=== PATIENT | female | born 1985 | race Caucasian/White ===

== ENCOUNTER 2024-03-06 01:30 | Emergency (ER) | payer OTHER, SELFPAY ==
[2024-03-06 01:37] VITALS: BP 171/92
[2024-03-06] MEDS: TORADOL 15 MG IV (02:17)
[2024-03-06] MEDS: NSS 1000 IV (02:18)
[2024-03-06 02:22] LABS: % Basophils 0.5 % (0-2); % Eosinophils 6.6 % (0-6); % Immature Granulocytes 0.4 % (0-0.5); % Lymphocytes 46.7 % (20.5-51.1); % Monocytes 6.8 % (1.7-9.3); Absolute Eosinophils 0.4 10^3/uL (0-0.7); Absolute Lymphocytes 2.6 10^3/uL (1.2-3.4); Absolute Monocytes 0.4 10^3/uL (0.1-0.6); Absolute Neutrophils 2.1 10^3/uL (1.4-6.5); Hematocrit 32.7 % (37.0-47.0); Hemoglobin 11.2 g/dL (12.0-16.0); Mean Corp Hgb Conc. 34.3 g/dL (33.0-37.0); Mean Corpuscular Hgb 29.9 pg (27.0-31.0); Mean Corpuscular Volume 87.2 fL (81.0-99.0); Mean Platelet Volume 9.3 fL (7.4-10.4); Nucleated Red Blood Cells % 0 %; Platelet Count 302 10^3/uL (130-400); Red Blood Cell Count 3.75 10^6/uL (4.20-5.40); Red Cell Dist. Width 12.4 % (11.5-14.5); White Blood Cell Count 5.5 10^3/uL (4.8-10.8)
[2024-03-06 02:27] LABS: Urine Albumin Negative (Neg - Trace); Urine Bilirubin Negative (Negative); Urine Character Clear (Clear); Urine Color Straw; Urine Glucose Negative (Negative); Urine Ketone Negative (Negative); Urine Leukocyte Negative (Negative); Urine Nitrite Negative (Negative); Urine Occult Blood Negative (Negative); Urine Urobilinogen Negative (Neg - 1+); Urine pH 6.5 (5.0-9.0)
[2024-03-06 02:31] LABS: HCG, Serum Qualitative Screen Negative
--- NOTE | 2024-03-06 02:34 | ED.GENMED ---
History of Present Illness
General
Chief Complaint: Abdominal Pain
Source: patient
Time Seen by Provider: 03/06/24 01:56
Nursing documentation reviewed up to this point in time: agreed with
History of Present Illness
History of Present Illness:
This a pleasant 38-year-old female who presents with right flank pain. She states that last week she had generalized abdominal pain but the pain eventually radiated to the right flank. Patient thinks she had a kidney stone in the past but is
unsure if this feels similar. She did take a GLP-1 prescribed by weight watchers but stopped taking it last week. Denies fever or chills. Reports no nausea or vomiting. Denies any difficulty urinating. Reports no diarrhea.
Past History
Past History
ED Past Medical History: Other (pih); Negative Asthma, HTN, Hypercholesterolemia or NIDDM
ED Past Surgical History:
Social History
Tobacco: Non-smoker
Alcohol: Occasional
Personal:
Living: with family
Employment: Employed
Family History
Family History: Other (migrane headache.)
Review of Systems
Review of Systems
Allergies reviewed?: Yes
All Other Systems: ROS reviewed and negative except as documented in HPI and ROS
Constitutional: Reports no symptoms
EENT: Reports no symptoms
Respiratory: Reports no symptoms
Cardiac: Reports no symptoms
ABD/GI: Reports abdominal pain; Denies nausea, vomiting, diarrhea or constipated
: Reports flank pain
Musculoskeletal: Reports no symptoms
Skin: Reports no symptoms
Neurological: Reports no symptoms
Endocrine: Reports no symptoms
Hematologic/Lymphatic: Reports no symptoms
Psychiatric: Reports no symptoms
Phy Exam
General Physical Exam
General Presentation: well appearing and mild distress
General Skin: warm
General Habitus: normal
General Mental: alert
General Hydration: appears well hydrated
ENT Exam
ENT Exam: EOMI, pharynx normal, neck supple and normocephalic
Eye Exam
Eye Exam: PERRL, cornea clear and conjunctiva normal
Cardiovascular Exam
Cardiovascular Exam: regular rate/rhythm, no edema, no murmur and normal peripheral pulses
Pulmonary Exam
Pulmonary Exam: lungs clear, no respiratory distress, no rales, no crackles, no rhonchi, no stridor, no wheezing and no cough
Gastrointestinal Exam
Gastrointestinal Exam: cva tenderness (Right-sided)
Neurological Exam
Neurological Exam: alert, oriented x3, no motor deficits and speech normal
Musculoskeletal Exam
Musculoskeletal Exam: full ROM and no edema
Skin Exam
Skin Exam: normal color, warm/dry, no rash and no petechia
Psychiatric Exam
Psychiatric Exam: normal mood/affect
Course
Orders/Labs/Results
Orders:
Orders
03/06/24 02:03
CT Abd/pel Without Iv Or Oral Urgent
Comment:
Reason For Exam: left flank pain
Test Result ONCE
03/06/24 02:10
Complete Blood Count/With Diff Urgent
Comprehensive Metabolic Panel Urgent
HCG, Serum Qualitative Screen Urgent
Lipase Urgent
03/06/24 02:13
Ketorolac [Toradol] 15 mg .ROUTE .STK-MED ONE
Ketorolac [Toradol] 15 mg IV NOW STA
Ondansetron Injectable [Zofran] 4 mg .ROUTE .STK-MED ONE
03/06/24 02:18
0.9% Sodium Chloride 1000 ml [Nss] 1,000 ml IV BOLUS
03/06/24 02:19
Urinalysis Reflex To Culture Urgent
Date Specimen was Collected: 03/06/24
Time Specimen was Collected: 02:09
03/06/24 04:06
US Pelvis W Transvag Combined Urgent
Reason For Exam: right pelvic pain
Abnormal Lab Results
03/06/24
02:10
RBC 3.75 L 10^6/uL
(4.20-5.40)
Hgb 11.2 L g/dL
(12.0-16.0)
Hct 32.7 L %
(37.0-47.0)
Neutrophils % 39.0 L %
(42.2-75.2)
Eosinophils % 6.6 H %
(0-6)
03/06/24 02:10
03/06/24 02:10
Vital Signs
Initial and Last Documented VS:
Initial Vital Signs
Temp Pulse Resp BP Pulse Ox
98.5 F 88 18 171/92 99
03/06/24 01:37 03/06/24 01:37 03/06/24 01:37 03/06/24 01:37 03/06/24 01:37
Last Documented Vital Signs
Temp Pulse Resp BP Pulse Ox
98.5 F 76 17 171/92 100
03/06/24 01:37 03/06/24 04:41 03/06/24 04:41 03/06/24 01:37 03/06/24 04:41
*Critical Care Note
Total Time (30-74mins, 75-104mins- exclusive of procedures): Not Applicable
Update Note
Update Note:
CT A/P W/IV CONTRAST
IMPRESSION:
Comparison with 03/02/21.
No definite CT findings to account for the reported pain/symptoms.
Prominent right ovary within normal limits for size. This is likely a normal ovary for this patient given the size and appearance on prior. However, if there is pelvic pain, targeted ultrasound could be considered.
No appendicitis or colitis.
No evidence of small bowel obstruction.
No free fluid or free air.
Unremarkable CT appearance of the gallbladder, biliary tract, and pancreas.
No evidence of hydroureteronephrosis or obstructing stone.
No AAA.
Case finalized at 325am ET
Patient states that the pain is in a similar location to menstrual cramping. She states it is a little higher but this similar location. We will get an ultrasound after CT results
US pelvis
Comparison: Same date CT abdomen/pelvis
IMPRESSION:
�Anteverted but mildly retroflexed uterus. No myometrial mass. Lower uterine segment section scar. Unremarkable endometrium, with bilayer measuring 8 mm.
�Right ovary measures up to 5.3 cm. Intraovarian cyst with low-level internal echoes measures up to 3.4 cm; this is likely a hemorrhagic cyst or endometrioma. In the nonedematous surrounding stroma, normal arterial and venous flow on spectral
Doppler. No paraovarian mass.
�Left ovary measures up to 3.0 cm. Multiple small physiologic follicles by nonedematous stroma. Normal arterial and venous flow on spectral Doppler. No paraovarian mass.
�No significant free fluid in the pelvic cul-de-sac.
ED Attending Note
-
Portions of this chart may have been created with voice recognition software.� Occasional wrong word or��sound alike� substitutions may have occurred due to the inherent limitations of voice recognition software.
Discharge Plan
Departure
Patient Disposition: Home (Routine Discharge)
Date of Disposition: 03/06/24
Time of Disposition: 05:41
Patient with high blood pressure during this ER visit?: Yes
Condition: Good
Discharge Problem:
Ovarian cyst
Instructions: Ovarian Cyst (DC), Abdominal Pain, BLOOD PRESSURE
Prescriptions:
New
diclofenac sodium 75 mg tablet,delayed release (DR/EC)
75 mg PO BID Qty: 10 0RF
No Action
omeprazole 40 MG capsule,delayed release(DR/EC)
40 mg PO DAILY
diclofenac sodium 25 MG tablet,delayed release (DR/EC)
50 mg PO BID PRN (Reason: pain) Qty: 30 0RF
Referrals:
[facility] [Provider Group]
UNKNOWN - PT DOES,NOT KNOW [Family Provider] -
Activity Restrictions/Additional Instructions:
It was a pleasure meeting you and taking part in your care. We hope for your continued healing and wellness.
Please read discharge instructions in their entirety. However, they are for general education and may not describe your exact diagnosis at discharge. Information on your ER visit and medical conditions were discussed with you along with appropriate
follow up information...
If indicated, please take your medications as instructed and indicated on discharge paperwork.
Please schedule a follow up appointment as directed. Call to schedule an appointment
Please return to the emergency department with ANY change in, persisting, or worsening of symptoms. If any of your symptoms do not improve, or persist, or become more severe within 6-12 hours, please return to the emergency department for further
care.
Please return to the emergency department if you develop a headache, neck pain/stiffness, fever greater than 100.4F, chest pain, shortness of breath, persistent nausea, vomiting, slurred speech, difficulty walking, numbness/tingling, weakness, signs
of infection or any other symptoms that are worrisome to you.
If you have any questions or concerns please do not hesitate to call the Hospital at or E-mail me directly at [email or web address]
Interventions
Interventions:
*Risk Screen - Suicide Last Done: 03/06/24 01:37
*General Assessment Last Done: 03/06/24 01:37
*Neglect/Abuse Screening Last Done: 03/06/24 01:37
*ED COVID-19 Vaccine History Last Done: 03/06/24 01:37
VK-[id number]-Robcxdyifx Assessment Last Done: 03/06/24 04:25
Discharge Date and Time
Print Language: CENTRAL AFRICAN
[2024-03-06 02:35] LABS: ALT (SGPT) 17 U/L (0-35); AST (SGOT) 20 U/L (14-36); Albumin 4.2 g/dl (3.5-5.0); Alkaline Phosphatase 90 U/L (38-126); Blood Urea Nitrogen 11 mg/dl (7-17); Calcium 9.3 mg/dl (8.4-10.2); Carbon Dioxide 26 mmol/L (22-30); Chloride 103 mmol/L (98-107); Glucose 94 mg/dl (70-99); Lipase 74 U/L (23-300); Potassium 4.1 mmol/L (3.5-5.1); Sodium 139 mmol/L (135-145); Total Bilirubin 0.4 mg/dl (0.2-1.3); Total Protein 6.6 g/dl (6.3-8.2); eGFR > 60.00
== END 2024-03-06 06:03 | disposition home or self-care (01) ==
LOC: EMR 01:30
PROVIDERS: EMERGENCY PHYSICIAN Student in an Organized Health Care Education/Training Program
DX: N83.202 Unspecified ovarian cyst, left side (principal); N83.201 Unspecified ovarian cyst, right side; R03.0 Elevated blood-pressure reading, without diagnosis of hypertension
CPT/HCPCS: 99285; 96374; 96361; 74176; 76830; 76856; 80053; 81003; 83690; 84703; 85025

== ENCOUNTER 2024-05-18 16:37 | Emergency (ER) | payer OTHER, SELFPAY ==
[2024-05-18] MEDS: MORPHINE SULFATE 4 MG IV (17:24)
[2024-05-18] MEDS: ZOFRAN 4 MG IV (17:24)
[2024-05-18] MEDS: NSS 1000 IV (17:35)
[2024-05-18 17:36] LABS: Urine Albumin Negative (Neg - Trace); Urine Bilirubin Negative (Negative); Urine Character Clear (Clear); Urine Color Yellow; Urine Glucose Negative (Negative); Urine Ketone Negative (Negative); Urine Leukocyte Negative (Negative); Urine Nitrite Negative (Negative); Urine Occult Blood 2+ (Negative); Urine Urobilinogen Negative (Neg - 1+); Urine pH 6.5 (5.0-9.0)
[2024-05-18 17:39] LABS: % Basophils 0.6 % (0-2); % Eosinophils 6.4 % (0-6); % Immature Granulocytes 0.3 % (0-0.5); % Lymphocytes 24.6 % (20.5-51.1); % Monocytes 4.4 % (1.7-9.3); % Neutrophils 63.7 % (42.2-75.2); Absolute Basophils 0.1 10^3/uL (0-0.2); Absolute Eosinophils 0.5 10^3/uL (0-0.7); Absolute Lymphocytes 1.9 10^3/uL (1.2-3.4); Absolute Monocytes 0.3 10^3/uL (0.1-0.6); Absolute Neutrophils 4.9 10^3/uL (1.4-6.5); Hematocrit 34.7 % (37.0-47.0); Hemoglobin 11.9 g/dL (12.0-16.0); Mean Corp Hgb Conc. 34.3 g/dL (33.0-37.0); Mean Corpuscular Hgb 30.3 pg (27.0-31.0); Mean Corpuscular Volume 88.3 fL (81.0-99.0); Mean Platelet Volume 9.8 fL (7.4-10.4); Nucleated Red Blood Cells % 0 %; Platelet Count 300 10^3/uL (130-400); Red Blood Cell Count 3.93 10^6/uL (4.20-5.40); Red Cell Dist. Width 12.9 % (11.5-14.5); White Blood Cell Count 7.7 10^3/uL (4.8-10.8)
[2024-05-18 17:49] LABS: Urine Bacteria Few (Negative); Urine Red Blood Cell 0-2 /HPF (0-2); Urine White Cell 0-2 /HPF (0-5)
[2024-05-18 17:57] LABS: HCG, Serum Qualitative Screen Negative
[2024-05-18 17:59] LABS: ALT (SGPT) 18 U/L (0-35); AST (SGOT) 23 U/L (14-36); Albumin 4.8 g/dl (3.5-5.0); Alkaline Phosphatase 99 U/L (38-126); Blood Urea Nitrogen 12 mg/dl (7-17); Calcium 10.1 mg/dl (8.4-10.2); Carbon Dioxide 25 mmol/L (22-30); Chloride 106 mmol/L (98-107); Glucose 99 mg/dl (70-99); Potassium 4.5 mmol/L (3.5-5.1); Sodium 138 mmol/L (135-145); Total Bilirubin 0.8 mg/dl (0.2-1.3); Total Protein 7.1 g/dl (6.3-8.2); eGFR > 60.00
--- NOTE | 2024-05-18 19:28 | ED.GENMED ---
History of Present Illness
General
Chief Complaint: Female Tobacco Hanger/Gu symptoms
Source: patient
Exam Limitations: none
Time Seen by Provider: 05/18/24 16:55
Nursing documentation reviewed up to this point in time: agreed with
History of Present Illness
History of Present Illness:
Patient to ED with complaint of worsening pelvic pain. SHe states she has a right ovarian cyst and suspected endometriosis. SHe has an uS scheduled for next week but did not feel that she could wait. Brought to ED by family for eval. Denies
fever/chills,n/v/d. LMP today, normal flow.
Past History
Past History
ED Past Medical History: Other (pih); Negative Asthma, HTN, Hypercholesterolemia or NIDDM
ED Past Surgical History:
Social History
Tobacco: Non-smoker
Alcohol: Occasional
Personal:
Living: with family
Employment: Employed
Family History
Family History: Other (migrane headache.)
Review of Systems
Review of Systems
Allergies reviewed?: Yes
All Other Systems: ROS reviewed and negative except as documented in HPI and ROS
Constitutional: Reports no symptoms
EENT: Reports no symptoms
Respiratory: Reports no symptoms
Cardiac: Reports no symptoms
ABD/GI: Reports other (Pelvic pain)
: Reports no symptoms
Musculoskeletal: Reports no symptoms
Skin: Reports no symptoms
Neurological: Reports no symptoms
Psychiatric: Reports no symptoms
Phy Exam
General Physical Exam
General Presentation: well appearing and mild distress
General age: appears stated age
General Skin: warm and dry
General Habitus: normal
Pulmonary Exam
Pulmonary Exam: lungs clear and no respiratory distress
Gastrointestinal Exam
Gastrointestinal Exam: normal bowel sounds, soft, no organomegaly, no pulsatile mass, non distended and other (Bilateral lower pelvic pain mag palpation)
Musculoskeletal Exam
Musculoskeletal Exam: full ROM and neuro vasc intact
Skin Exam
Skin Exam: normal color, warm/dry and no rash
Psychiatric Exam
Psychiatric Exam: normal mood/affect
Course
Orders/Labs/Results
Orders:
Orders
05/18/24 17:09
Test Result ONCE
05/18/24 17:10
Pelvis (Non Obstetric) US [US Pelvis Only (non-obstetric)] Urgent
Comment:
Reason For Exam: pain
05/18/24 17:11
Morphine Sulfate 4 mg IV NOW STA
Ondansetron Injectable [Zofran] 4 mg IV NOW STA
05/18/24 17:26
Complete Blood Count/With Diff Urgent
Comprehensive Metabolic Panel Urgent
HCG, Serum Qualitative Screen Urgent
05/18/24 17:28
Urinalysis Reflex To Culture Urgent
Date Specimen was Collected: 05/18/24
Time Specimen was Collected: 17:27
Urine Microscopic Reflex Cult Urgent
05/18/24 17:35
0.9% Sodium Chloride 1000 ml [Nss] 1,000 ml IV BOLUS
Abnormal Lab Results
05/18/24 05/18/24
17:26 17:28
RBC 3.93 L 10^6/uL
(4.20-5.40)
Hgb 11.9 L g/dL
(12.0-16.0)
Hct 34.7 L %
(37.0-47.0)
Eosinophils % 6.4 H %
(0-6)
Ur Occult Blood Reflex 2+ A
(Negative)
Urine Bacteria (Reflex) Few A
(Negative)
05/18/24 17:26
05/18/24 17:26
Vital Signs
Initial and Last Documented VS:
Initial Vital Signs
Temp Pulse Resp BP Pulse Ox
98.1 F 108 20 189/89 99
05/18/24 16:39 05/18/24 16:39 05/18/24 16:39 05/18/24 16:39 05/18/24 16:39
Last Documented Vital Signs
Temp Pulse Resp BP Pulse Ox
98.1 F 78 20 154/88 100
05/18/24 16:39 05/18/24 19:22 05/18/24 16:39 05/18/24 18:00 05/18/24 19:22
*Radiology
Radiology exam reviewed: radiology read reviewed
*Pulse Oximetry
Patient hypoxic: no
*Critical Care Note
Total Time (30-74mins, 75-104mins- exclusive of procedures): Not Applicable
Update Note
Update Note:
Labs, US reviewed with patient. Right ovarian cyst smaller than noted in prior study. SHe will be discharged home and will follow up withgyn and enometrial specialist as planned.
ED Attending Note
-
Portions of this chart may have been created with voice recognition software.� Occasional wrong word or��sound alike� substitutions may have occurred due to the inherent limitations of voice recognition software.
Discharge Plan
Departure
Patient Disposition: Home (Routine Discharge)
Date of Disposition: 05/18/24
Time of Disposition: 19:24
Patient with high blood pressure during this ER visit?: No
Condition: Good
Covid-19: Not Applicable
Discharge Problem:
Pelvic pain
Instructions: Ovarian cyst - ED discharge instructions
Prescriptions:
New
tramadol 50 mg tablet
50 mg PO Q6H PRN (Reason: Pain) Qty: 12 0RF
No Action
omeprazole 40 MG capsule,delayed release(DR/EC)
40 mg PO DAILY
diclofenac sodium 25 MG tablet,delayed release (DR/EC)
50 mg PO BID PRN (Reason: pain) Qty: 30 0RF
diclofenac sodium 75 mg tablet,delayed release (DR/EC)
75 mg PO BID Qty: 10 0RF
Referrals:
Stranges,Lupe, DIRECTOR GRAPHICS [Family Provider] -
Activity Restrictions/Additional Instructions:
Follow up with your oyster opener and keep your scheduled appointment with the endometrial specialist. Return to the emergency department immediately for any changes in/worsening of your symptoms.
Interventions
Interventions:
*Risk Screen - Suicide Last Done: 05/18/24 17:33
*General Assessment Last Done: 05/18/24 16:39
*Neglect/Abuse Screening Last Done: 05/18/24 17:33
*ED COVID-19 Vaccine History Last Done: 05/18/24 17:33
ED-Female Genitourinary Assessment Last Done: 05/18/24 17:45
Discharge Date and Time
Print Language: SINHALA
== END 2024-05-18 19:52 | disposition home or self-care (01) ==
LOC: EMR 16:37
PROVIDERS: Nurse Practitioner; EMERGENCY PHYSICIAN Emergency Medicine; FAMILY PHYSICIAN Nurse Practitioner Family
DX: R10.2 Pelvic and perineal pain (principal); N83.201 Unspecified ovarian cyst, right side; Z90.721 Acquired absence of ovaries, unilateral
CPT/HCPCS: 99284; 96374; 96375; 76856; 80053; 81003; 81015; 84703; 85025

== ENCOUNTER → 2024-10-27 07:59 | Outpatient (REF) | payer OTHER, SELFPAY | LOC: HWRAD 07:59 | PROVIDERS: ATTENDING PHYSICIAN Obstetrics & Gynecology; FAMILY PHYSICIAN Physician Assistant Medical | DX: N83.201 Unspecified ovarian cyst, right side (principal); R10.2 Pelvic and perineal pain | CPT/HCPCS: 76830; 76856 ==

== ENCOUNTER 2024-11-08 06:17 | Day surgery (SDC) | payer OTHER, SELFPAY ==
[2024-11-04 09:54] LABS: Hematocrit 37.5 % (37.0-47.0); Hemoglobin 12.7 g/dL (12.0-16.0); Mean Corp Hgb Conc. 33.9 g/dL (33.0-37.0); Mean Corpuscular Volume 91.2 fL (81.0-99.0); Nucleated Red Blood Cells % 0 %; Platelet Count 319 10^3/uL (130-400); Red Cell Dist. Width 13.6 % (11.5-14.5)
[2024-11-04 12:03] LABS: Blood Urea Nitrogen 13 mg/dl (7-17); Calcium 10.1 mg/dl (8.4-10.2); Carbon Dioxide 25 mmol/L (22-30); Chloride 107 mmol/L (98-107); Glucose 92 mg/dl (70-99); Potassium 4.9 mmol/L (3.5-5.1); Sodium 138 mmol/L (135-145); eGFR > 60.00
[2024-11-04 12:05] LABS: Beta HCG Quantitative < 2.39 mIU/ml
[2024-11-08] VITALS (10 sets, daily range): BP systolic 95–164; BP diastolic 63–91; BMI 24.3
[2024-11-08] MEDS: EMEND 40 MG PO (11:49)
[2024-11-08] MEDS: TYLENOL 1000 MG PO (11:50)
[2024-11-08] MEDS: NEURONTIN 300 MG PO (11:50)
[2024-11-08] MEDS: NORMOSOL-R/PLASMALYTE-A 1000 IV (11:55)
--- NOTE | 2024-11-08 16:26 | W.IMMPOSTOP ---
Surgical Immed Post Op Note
-
Primary Surgeon: Karlie Browne DO
Casino Accountant:DOROTA Alva
Pre-op Diagnosis: Menorrhagia, dysmenorrhea, complex right adnexal cystic mass
Post-op Diagnosis: Menorrhagia, dysmenorrhea, complex right adnexal mass, endometriosis, pelvic adhesions
Procedure Performed: Hysteroscopy D&C; robotic diagnostic laparoscopy, lysis of adhesions
Anesthesia Type: general ET DR. Tello
Specimen / Cultures: 1. endocervical curettings 2. endometrial curettings
Estimated Blood Loss: 2ml
Complications: none
Operative Findings: Hysteroscopic findings: normal appearing endometrial cavity, bilateral tubal ostia seen.
Laparoscopic findings: Uterus globular shape with adhesions involving sigmoid colon, obliterated cul de sac. Right adnexa with
adhesions involving bowel and posterior uterus. Dilated right fallopian tube. Endometriosis implant superficially on sigmoid colon, pelvic peritoneal
endometriosis implants. Neither ovary able to be visualized due to adhesions behind uterus involving bowel.
Decision made to abort planned right ovarian cystectomy so further patient counseling can be performed as well as bowel prep and having colorectal surgeon available.
Dr. Newsome performed umbilical hernia repair and closure.
Counts correct times 2.
Stable to recovery.
[2024-11-08] MEDS: DILAUDID 0.5 MG IV (17:19)
--- NOTE | 2024-11-09 09:40 | W.IMMPOSTOP ---
Surgical Immed Post Op Note
-
Primary Surgeon: Mercedez
Assisting Surgeon: DOROTA Perdue
Pre-op Diagnosis: Umbilical hernia
Post-op Diagnosis: Umbilical hernia
Procedure Performed: Open primary umbilical hernia repair
Anesthesia Type: General
Specimen / Cultures: None
Estimated Blood Loss: 3 cc
Complications: None
Operative Findings:
1. Fascial defect < 1 cm, pre-peritoneal fat
2. Primary closure with 0 PDS x 3
== END 2024-11-08 18:22 | disposition home or self-care (01) ==
LOC: SDS 06:17
PROVIDERS: ATTENDING PHYSICIAN Obstetrics & Gynecology
DX: N92.0 Excessive and frequent menstruation with regular cycle (principal); N94.6 Dysmenorrhea, unspecified; N80.9 Endometriosis, unspecified; N83.291 Other ovarian cyst, right side; N73.6 Female pelvic peritoneal adhesions (postinfective)
CPT/HCPCS: 58558; 36415; 80048; 84702; 85025; 86850; 86900; 86901; 88305

== ENCOUNTER → 2024-12-02 08:13 | Outpatient (REF) | payer OTHER, SELFPAY | LOC: HWWDC 08:13 | PROVIDERS: ATTENDING PHYSICIAN Obstetrics & Gynecology; FAMILY PHYSICIAN Physician Assistant Medical | DX: Z12.31 Encounter for screening mammogram for malignant neoplasm of breast (principal) | CPT/HCPCS: 77063; 77067 ==

== ENCOUNTER 2024-12-13 05:52 | Inpatient (IN) | payer OTHER, SELFPAY ==
[2024-12-13] VITALS (16 sets, daily range): BP systolic 113–158; BP diastolic 57–94; BMI 24.7
[2024-12-13] MEDS: NEURONTIN 300 MG PO (06:33)
[2024-12-13] MEDS: TYLENOL 1000 MG PO ×3 (06:34→23:14)
[2024-12-13] MEDS: NORMOSOL-R/PLASMALYTE-A 1000 IV ×3 (06:42→21:41)
[2024-12-13] MEDS: VIBRAMYCIN 270 MG IV (06:43)
--- NOTE | 2024-12-13 11:00 | W.IMMPOSTOP ---
Documented by User: LAURA Seay 12/13/24 11:20
Surgical Immed Post Op Note
-
Primary Surgeon: Nam Reyes MD
Assisting Surgeon: Karlie Browne DO
Assistants: SARABJIT Turcios
Pre-op Diagnosis: Endometriosis of Sigmoid Colon
Post-op Diagnosis: Same
Procedure Performed: Robotic lysis of adhesions, intraoperative flexible sigmoidoscopy
Anesthesia Type: GET
Specimen / Cultures:
Estimated Blood Loss: 25cc
Complications: None
Operative Findings: Multiple adhesions in lower pelvis, extensive adhesions of rectum and sigmoid colon, normal flexible sigmoidoscopy.

Documented by User: Henry Reyes MD 12/13/24 11:21
Surgical Immed Post Op Note
-
Primary Surgeon: Nam Reyes MD
Assisting Surgeon: Karlie Browne DO
Assistants: SARABJIT Huffman, TATE WoodardS
Pre-op Diagnosis: Severe endometriosis
Post-op Diagnosis: Same
Procedure Performed: Cystoscopy with bilateral ureteral stents/ICG by Dr. Schmidt
Robotic extensive lysis of adhesions (>2hours), intraoperative flexible sigmoidoscopy
Robotic total hysterectomy by Dr. Browne
Anesthesia Type: GET
Specimen / Cultures: None by me
Estimated Blood Loss: 25cc from my portion
Complications: None
Operative Findings: Multiple adhesions in lower pelvis from severe endometriosis, extensive adhesions between the uterus/ovaries and rectosigmoid, normal flexible sigmoidoscopy.
--- NOTE | 2024-12-13 11:25 | W.IMMPOSTOP ---
Surgical Immed Post Op Note
-
Primary Surgeon: Karlie Browne DO
Eyelet Row Marker: DOROTA Alva
Pre-op Diagnosis: Severe endometriosis, right ovarian endometrioma, Dense pelvic adhesions, chronic pelvic pain, dysmenorrhea, adhesions of colon
Post-op Diagnosis: same
Procedure Performed: Robotic Total laparoscopic hysterectomy, bilateral salpingo-oopherectomy, extensive lysis of adhesions; cystoscopy and bilateral ureteral stent placement by Dr. Schmidt (Urology)
Anesthesia Type: general ET Dr. Barakat
Specimen / Cultures: uterus, cervix, bilateral fallopian tubes
Estimated Blood Loss: 10ml (total case 35ml)
Complications: none
Operative Findings: Globular shaped uterus with some adhesions in JEFFRY. Bilateral hydrosalpinx. Obliterated culde sac. Severe endometriosis stage 4.
Right ovarian endometrioma. Left ovarian endometriosis. Both ovaries with severe adhesions. Sigmoid colon adhesions to posterior uterus, cervix, bilateral adnexa.
Left ureteral stent removed at end of case.
Morel 530mL.
Counts correct times 2.
Stable to recovery.
[2024-12-13] MEDS: DILAUDID 0.25 MG IV (11:56)
[2024-12-13] MEDS: ZOFRAN 4 MG IV (12:06)
[2024-12-13] MEDS: DILAUDID 0.5 MG IV (12:19)
[2024-12-13] MEDS: DETROL LA 4 MG PO (13:10)
--- NOTE | 2024-12-13 13:45 | PTCARENOTE ---
Patient admitted from pacu post robotic total hysterectomy and lysis of adhesions.The patient is alert and oriented.She rates her pain at a 4 out of 10.All incisions are clean without drainage.The patient does complain of discomfort and pressure
from the cartagena catheter.The patient is in her bed with the call smith in reach.
[2024-12-13] MEDS: VALIUM INJECTION 5 MG IV (14:05)
[2024-12-13] MEDS: MORPHINE SULFATE 2 MG IV (16:03)
[2024-12-13] MEDS: MYLICON 80 MG PO ×2 (17:13→23:13)
[2024-12-13] MEDS: LOVENOX 40 MG SC (17:14)
[2024-12-13] MEDS: ROXICODONE 5 MG PO ×2 (19:26→23:31)
[2024-12-13] MEDS: COLACE 100 MG PO (19:26)
[2024-12-14 03:30] VITALS: BP 136/78
[2024-12-14] MEDS: ROXICODONE 5 MG PO ×2 (03:52→08:24)
[2024-12-14] MEDS: TYLENOL 1000 MG PO ×2 (05:47→13:00)
[2024-12-14] MEDS: MYLICON 80 MG PO ×2 (05:47→13:00)
[2024-12-14 06:33] LABS: Hematocrit 31.8 % (37.0-47.0); Hemoglobin 10.4 g/dL (12.0-16.0); Mean Corp Hgb Conc. 32.7 g/dL (33.0-37.0); Mean Corpuscular Volume 94.1 fL (81.0-99.0); Nucleated Red Blood Cells % 0 %; Platelet Count 344 10^3/uL (130-400); Red Cell Dist. Width 12.5 % (11.5-14.5)
[2024-12-14 07:05] LABS: Blood Urea Nitrogen 5 mg/dl (7-17); Carbon Dioxide 26 mmol/L (22-30); Chloride 106 mmol/L (98-107); Estimated Creatinine Clearance 107 ml/min; Potassium 4.1 mmol/L (3.5-5.1); Sodium 138 mmol/L (135-145)
--- NOTE | 2024-12-14 07:30 | W.PN.OBG.DWH ---
Today's Communication / Plan
-
must urinate prior to discharge
dc today
Assessment/Plan
-
POD#1 s/p RA TLH BSO for stage 4 endometriosis with dense pelvic adhesions and adhesions to bowel.
Hemodynamically stable.
Cartagena and stent removed.
-Must void before dc
Diet as ailyn
Will start on estradiol 2mg PO for estrogen replacement.
RTO 2 wks
Reviewed instructions
Subjective Data
-
POD#1 Feeling well, no concerns.
Happy to get cartagena out.
+ belching, feels gas moving.
Ailyn diet
Adequate pain control.
Objective Data
-
Laboratory Results
12/14/24 05:40
12/14/24 05:40
Vital Signs
Temp Pulse Resp BP Pulse Ox
99.1 F 92 16 136/78 100
12/14/24 03:30 12/14/24 03:30 12/14/24 03:30 12/14/24 03:30 12/14/24 03:30
VSS afeb
Cor regular rate
Pulm: clear
abd: soft +bs nondistended, incisions cdi
no vaginal bleeding
ext: no calf pain
[2024-12-14 07:35] VITALS: BP 145/83
--- NOTE | 2024-12-14 07:39 | W.DS.TRANS ---
DC Summary - Analytic Programmer
-
Discharge Instructions:
Sleep Apnea Risk Intermediate
Discharge Diagnosis/Procedures Endometriosis, chronic pelvic pain, adhesions
Diet Regular
Activity No strenuous activity
Driving Restrictions No driving for 1 week
Bathing Restrictions OK to Shower
Instructions:
Stand-Alone Forms:
Changes to Home Medications: No
Discharge Medications:
DC Medications w/original date entered in [facility]
alprazolam 0.5 mg tablet 0.5 mg PO BID PRN anxiety 11/03/24
sumatriptan succinate 25 mg tablet (Imitrex) 25 mg PO PRN PRN MIGRAINE 11/03/24
acetaminophen 500 mg tablet (Tylenol Extra Strength) 1,000 mg (2 x 500 mg) PO Q6HPRN PRN mild pain #0 tabs 12/14/24
ibuprofen 600 mg tablet 600 mg PO Q6H PRN cramps #1 tab 12/14/24
omeprazole 20 mg tablet,delayed release 20 mg PO DAILY reflux symptoms #0 tabs 12/14/24
oxycodone 5 mg tablet 2.5 mg (1/2 x 5 mg) PO Q4HPRN PRN moderate pain #0 tabs 12/14/24
oxycodone 5 mg tablet 5 mg PO Q4HPRN PRN severe pain #12 tabs 12/14/24
Home Medication Changes
Pending Results: Yes
Additional Pending Results:
surgical pathology
Total time spent discharging patient (in min): 30
[2024-12-14] MEDS: COLACE 100 MG PO (08:22)
[2024-12-14] MEDS: NORMOSOL-R/PLASMALYTE-A IV ×2 (08:22→13:01)
[2024-12-14] MEDS: PROTONIX 40 MG PO (08:22)
--- NOTE | 2024-12-14 09:15 | CM ---
Patient seen at bedside in [address] [place] [address]. Patient states that she lives with spouse and children. Patient has a ride home with . Patient states she lives in a one story home with no DME. Patient stated that her PCP is Dr. Mathur and she uses the
[facility] in [place]. Patient is for discharge home today. Patient indicated that she did not anticipate any discharge planning needs.
Plan; home with no needs
--- NOTE | 2024-12-14 09:40 | W.PN.CRS1 ---
Today's Communication / Plan
-
Continue regular diet
Out of bed
Discharge
Assessment/Plan
-
POD#1 Robotic lysis of adhesions, intraoperative flexible sigmoidoscopy
vitals normal
WBC: 8.1. RBC 10.4 (12.7)
- Regular diet
- Out of bed as tolerated
- OR pathology is pending
- Follow-up as needed
- For discharge later today
Subjective Data
Subjective Data
Date of Service: December 14, 2024
Patient states she feels well. Her only complaint is that she has some gas pain overnight. She has been walking the halls. She has passed flatus. Denies nausea or vomiting. She did some breakfast this morning.
Objective Data
-
Vital Signs
Temp Pulse Resp BP Pulse Ox
98.7 F 92 16 145/83 100
12/14/24 07:35 12/14/24 07:35 12/14/24 07:35 12/14/24 07:35 12/14/24 07:35
Intake & Output
12/13/24 12/14/24 12/15/24
06:59 06:59 06:59
Intake Total 5042 / 5042
Output Total 5430 / 5430
Balance -388 / -388
Intake:
Oral fluids 3267 / 3267
IV fluids (Total) 1775 / 1775
Normosol 400 / 400
Output:
Urine, Morel 5430 / 5430
Lab Results
12/14/24 05:40
12/14/24 05:40
Physical Exam
-
General: No Acute Distress and AOx3
Abdomen: Soft, Non Distended and Non Tender
Skin: Warm and Dry
Incision: Clear, Dry, Intact
[2024-12-14] MEDS: XANAX 0.5 MG PO (09:44)
[2024-12-14 11:05] VITALS: BP 158/88
[2024-12-14] MEDS: MOTRIN 600 MG PO (14:19)
[2024-12-14 15:15] VITALS: BP 142/81
== END 2024-12-14 15:43 | disposition home or self-care (01) | DRG 743 ==
LOC: 2 SOUTH 05:52
PROVIDERS: ADMITTING PHYSICIAN Surgery; FAMILY PHYSICIAN Nurse Practitioner Adult Health; REFERRING PHYSICIAN Obstetrics & Gynecology
PROC: 0UN24ZZ Release Bilateral Ovaries, Percutaneous Endoscopic Approach (ICD-10-PCS; 2024-12-13)
PROC: 0UT24ZZ Resection of Bilateral Ovaries, Percutaneous Endoscopic Approach (ICD-10-PCS; 2024-12-13)
PROC: 0UN94ZZ Release Uterus, Percutaneous Endoscopic Approach (ICD-10-PCS; 2024-12-13)
PROC: 0UT7FZZ Resection of Bilateral Fallopian Tubes, Via Natural or Artificial Opening With Percutaneous Endoscopic Assistance (ICD-10-PCS; 2024-12-13)
PROC: 0DNN4ZZ Release Sigmoid Colon, Percutaneous Endoscopic Approach (ICD-10-PCS; 2024-12-13)
PROC: 8E0W4CZ Robotic Assisted Procedure of Trunk Region, Percutaneous Endoscopic Approach (ICD-10-PCS; 2024-12-13)
PROC: 0UN64ZZ Release Left Fallopian Tube, Percutaneous Endoscopic Approach (ICD-10-PCS; 2024-12-13)
PROC: 0UT9FZZ Resection of Uterus, Via Natural or Artificial Opening With Percutaneous Endoscopic Assistance (ICD-10-PCS; 2024-12-13)
DX: N80.00 Endometriosis of the uterus, unspecified (principal); N80.123 Deep endometriosis of bilateral ovaries; N73.6 Female pelvic peritoneal adhesions (postinfective); N94.6 Dysmenorrhea, unspecified; N92.0 Excessive and frequent menstruation with regular cycle; G89.29 Other chronic pain; Z79.899 Other long term (current) drug therapy
CPT/HCPCS: 80051; 82565; 84520; 85025; 86850; 86900; 86901; 88307